=== PATIENT | female | born 1950 | race Caucasian/White ===

== ENCOUNTER 2016-11-24 13:20 | Inpatient (IN) | payer MEDICARE, MEDICAID ==
[~2016-11-24] VITALS: Ht 152.4 cm; Wt 68.0 kg
[~2016-11-24 13:20] MED LIST: ASPI-1159 PO; FURO40TA5 PO; HYDR-523 PO; LEVO150T8 PO; LISI2.5T47 PO; VIT D2 PO
[2016-11-24 15:36] LABS: BASOPHILS % 0.5 % (0.0-2.0); EOSINOPHILS % 1.7 % (0.0-5.0); HEMATOCRIT. 35.8 % (36.0-48.0); LYMPHOCYTES % 20.2 % (20.0-50.0); MEAN CORPUSCULAR HEMOGLOBIN 30.9 pg (28.0-32.0); MEAN CORPUSCULAR VOLUME 92.1 fL (81.0-99.0); MEAN PLATELET VOLUME 10.4 fl (7.4-10.4); NEUTROPHILS % 69.6 % (40.0-76.0); PLATELET 171 x1000/uL (130-400); RED BLOOD CELL COUNT 3.88 mill/uL (4.2-5.4); RED CELL DISTRIBUTION WIDTH 14.1 % (11.6-14.6)
[2016-11-24 15:41] LABS: CHLORIDE 110 mEq/L (98-107)
[2016-11-24 15:44] LABS: CARBON DIOXIDE 27 mEq/L (21-32)
[2016-11-24 21:35] VITALS: BP 144/82
[2016-11-24 21:55] VITALS: BP 144/82
[2016-11-24] MEDS ORDERED: POTA20TA82 PO (22:53)
[2016-11-24] MEDS ORDERED: CARV3.1242 PO (22:53)
[2016-11-24] MEDS ORDERED: ATOR10TA69 PO (22:53)
[2016-11-24] MEDS ORDERED: CLOP75TA33 PO (22:53)
[2016-11-24] MEDS ORDERED: HYDROCODONE/ACETAMINOPHEN 5/325MG TABLET PO PRN (23:00)
[2016-11-25] VITALS (9 sets, daily range): BP systolic 115–142; BP diastolic 47–78
[2016-11-25] MEDS: LEVOTHYROXINE SODIUM 150MCG TABLET PO SCH (06:45)
[2016-11-25 07:01] LABS: BASOPHILS % 0.8 % (0.0-2.0); HEMATOCRIT. 37.2 % (36.0-48.0); HEMOGLOBIN. 12.6 g/dL (12.0-16.0); LYMPHOCYTES % 23.7 % (20.0-50.0); MEAN CORPUSCULAR HEMOGLOBIN 31.1 pg (28.0-32.0); MEAN PLATELET VOLUME 10.7 fl (7.4-10.4); MONOCYTES % 9.4 % (2.0-8.0); NEUTROPHILS % 63.1 % (40.0-76.0); PLATELET 165 x1000/uL (130-400); RED BLOOD CELL COUNT 4.04 mill/uL (4.2-5.4); RED CELL DISTRIBUTION WIDTH 13.9 % (11.6-14.6)
[2016-11-25 07:32] LABS: CHLORIDE 109 mEq/L (98-107)
[2016-11-25 07:43] LABS: CARBON DIOXIDE 28 mEq/L (21-32)
[2016-11-25] MEDS: CARVEDILOL 3.125 MG TABLET PO SCH ×2 (09:00→17:00)
[2016-11-25] MEDS ORDERED: CLOPIDOGREL 75MG TABLET PO SCH (09:00)
[2016-11-25] MEDS: FUROSEMIDE 40MG TABLET PO SCH (09:40)
[2016-11-25] MEDS: POTASSIUM CHLORIDE 20MEQ TABLET SR PO SCH (09:40)
[2016-11-25] MEDS: ASPIRIN 81MG EC TABLET PO SCH (09:40)
[2016-11-25] MEDS: LISINOPRIL 2.5MG TABLET PO SCH (09:40)
[2016-11-25] MEDS: ENOXAPARIN 40MG/0.4ML SYR SUBCUT SCH (09:41)
[2016-11-25] MEDS ORDERED: DIATR MEGLU/DIATRIZOATE SOLN 120ML ONE (13:07)
[2016-11-25] MEDS: ATORVASTATIN CALCIUM 10MG TABLET PO SCH (21:21)
[2016-11-26] VITALS: BP 123/55
[2016-11-26 02:00] VITALS: BP 103/60
[2016-11-26 04:00] VITALS: BP 120/66
[2016-11-26] MEDS: LEVOTHYROXINE SODIUM 150MCG TABLET PO SCH (06:57)
[2016-11-26 07:01] LABS: BASOPHILS % 0.5 % (0.0-2.0); EOSINOPHILS % 2.8 % (0.0-5.0); HEMATOCRIT. 39.2 % (36.0-48.0); HEMOGLOBIN. 13.2 g/dL (12.0-16.0); LYMPHOCYTES % 22.3 % (20.0-50.0); MEAN CORPUSCULAR HEMOGLOBIN 30.9 pg (28.0-32.0); MEAN PLATELET VOLUME 10.5 fl (7.4-10.4); MONOCYTES % 8.8 % (2.0-8.0); NEUTROPHILS % 65.6 % (40.0-76.0); PLATELET 177 x1000/uL (130-400); RED BLOOD CELL COUNT 4.26 mill/uL (4.2-5.4); RED CELL DISTRIBUTION WIDTH 14.3 % (11.6-14.6)
[2016-11-26 07:52] LABS: CARBON DIOXIDE 28 mEq/L (21-32); CHLORIDE 106 mEq/L (98-107); CREATINE KINASE 149 IU/L (26-192); CREATINE KINASE MB FRACTION 1.9 ng/mL (0.5-3.6); TROPONIN I 0.07 ng/mL (0.00-0.04)
[2016-11-26] MEDS: FUROSEMIDE 40MG TABLET PO SCH (10:47)
[2016-11-26] MEDS: POTASSIUM CHLORIDE 20MEQ TABLET SR PO SCH (10:47)
[2016-11-26] MEDS: ASPIRIN 81MG EC TABLET PO SCH (10:48)
[2016-11-26] MEDS: CARVEDILOL 3.125 MG TABLET PO SCH ×2 (10:49→17:00)
[2016-11-26] MEDS: ENOXAPARIN 40MG/0.4ML SYR SUBCUT SCH (10:49)
[2016-11-26] MEDS: LISINOPRIL 2.5MG TABLET PO SCH (10:52)
[2016-11-26] MEDS ORDERED: CLOPIDOGREL 75MG TABLET PO SCH (11:00)
[2016-11-26 16:00] VITALS: BP_SYST 87; BP_SYST 95; BP_SYST 96; BP_DIAS 47; BP_DIAS 49; BP_DIAS 57
[2016-11-26 20:00] VITALS: BP 99/57
[2016-11-26] MEDS: ATORVASTATIN CALCIUM 10MG TABLET PO SCH (20:19)
[2016-11-26 22:00] VITALS: BP 96/73
[2016-11-27] VITALS (8 sets, daily range): BP systolic 91–109; BP diastolic 36–66
[2016-11-27] MEDS: LEVOTHYROXINE SODIUM 150MCG TABLET PO SCH (07:30)
[2016-11-27] MEDS: CARVEDILOL 3.125 MG TABLET PO SCH ×2 (08:44→17:00)
[2016-11-27] MEDS: ASPIRIN 81MG EC TABLET PO SCH (08:45)
[2016-11-27] MEDS: POTASSIUM CHLORIDE 20MEQ TABLET SR PO SCH (08:45)
[2016-11-27] MEDS: FUROSEMIDE 40MG TABLET PO SCH (08:45)
[2016-11-27] MEDS: LISINOPRIL 2.5MG TABLET PO SCH (08:45)
[2016-11-27 09:43] LABS: HEMATOCRIT. 40.4 % (36.0-48.0); HEMOGLOBIN. 13.5 g/dL (12.0-16.0); MEAN CORPUSCULAR HEMOGLOBIN 30.6 pg (28.0-32.0); MEAN CORPUSCULAR VOLUME 91.3 fL (81.0-99.0); MEAN PLATELET VOLUME 10.4 fl (7.4-10.4); PLATELET 181 x1000/uL (130-400); RED BLOOD CELL COUNT 4.42 mill/uL (4.2-5.4); RED CELL DISTRIBUTION WIDTH 14.2 % (11.6-14.6)
[2016-11-27 09:51] LABS: PARTIAL THROMBOPLASTIN TIME 27.9 sec (23.4-31.0); PROTHROMBIN TIME 10.6 sec (9.4-11.6)
[2016-11-27 10:31] LABS: CARBON DIOXIDE 26 mEq/L (21-32); CHLORIDE 105 mEq/L (98-107); HDL CHOLESTEROL 53 mg/dL (40-59); LDL CHOLESTEROL 52 mg/dL (5-100); PLATELET ESTIMATE NORMAL; TROPONIN I 0.06 ng/mL (0.00-0.04)
[2016-11-27] MEDS ORDERED: SIMETHICONE 40 MG/0.6 ML 30ML ONE (11:56)
[2016-11-27] MEDS ORDERED: SODIUM CHLORIDE 0.9% 10ML VIAL ONE (11:56)
[2016-11-27] MEDS ORDERED: MIDAZOLAM HCL 5 MG/5 ML VIAL ONE (12:46)
[2016-11-27] MEDS ORDERED: FENTANYL CITRATE/PF 50MCG/ML 2ML VIAL ONE (12:46)
[2016-11-27] MEDS: ATORVASTATIN CALCIUM 10MG TABLET PO SCH (21:00)
[2016-11-28] VITALS (7 sets, daily range): BP systolic 92–136; BP diastolic 43–74
[2016-11-28 06:34] LABS: BASOPHILS % 0.6 % (0.0-2.0); EOSINOPHILS % 2.3 % (0.0-5.0); HEMATOCRIT. 38.7 % (36.0-48.0); HEMOGLOBIN. 13.2 g/dL (12.0-16.0); LYMPHOCYTES % 21.7 % (20.0-50.0); MEAN CORPUSCULAR HEMOGLOBIN 31.4 pg (28.0-32.0); MEAN CORPUSCULAR VOLUME 91.7 fL (81.0-99.0); MEAN PLATELET VOLUME 10.4 fl (7.4-10.4); MONOCYTES % 8.5 % (2.0-8.0); NEUTROPHILS % 66.9 % (40.0-76.0); PLATELET 173 x1000/uL (130-400); RED BLOOD CELL COUNT 4.22 mill/uL (4.2-5.4); RED CELL DISTRIBUTION WIDTH 14.3 % (11.6-14.6)
[2016-11-28] MEDS: LEVOTHYROXINE SODIUM 150MCG TABLET PO SCH (06:42)
[2016-11-28 07:15] LABS: CARBON DIOXIDE 27 mEq/L (21-32); CHLORIDE 106 mEq/L (98-107)
[2016-11-28] MEDS: POTASSIUM CHLORIDE 20MEQ TABLET SR PO SCH (08:36)
[2016-11-28] MEDS: FUROSEMIDE 40MG TABLET PO SCH (08:36)
[2016-11-28] MEDS: ASPIRIN 81MG EC TABLET PO SCH (08:36)
[2016-11-28] MEDS: LISINOPRIL 2.5MG TABLET PO SCH (08:40)
[2016-11-28] MEDS: CARVEDILOL 3.125 MG TABLET PO SCH ×2 (08:42→17:00)
[2016-11-28] MEDS: ATORVASTATIN CALCIUM 10MG TABLET PO SCH (20:10)
[2016-11-29] VITALS (10 sets, daily range): BP systolic 88–115; BP diastolic 41–65
[2016-11-29] MEDS: LEVOTHYROXINE SODIUM 150MCG TABLET PO SCH (05:50)
[2016-11-29] MEDS: LISINOPRIL 2.5MG TABLET PO SCH (08:49)
[2016-11-29] MEDS: CARVEDILOL 3.125 MG TABLET PO SCH (08:49)
[2016-11-29] MEDS: ASPIRIN 81MG EC TABLET PO SCH (08:51)
[2016-11-29] MEDS: FUROSEMIDE 40MG TABLET PO SCH (08:51)
[2016-11-29] MEDS: POTASSIUM CHLORIDE 20MEQ TABLET SR PO SCH (08:51)
[2016-11-29] MEDS ORDERED: PROT40 PO (13:35)
[2016-12-01] MEDS ORDERED: ERGOCALCIFEROL 50000UNITS CAPSULE PO SCH (09:00)
[2016-12-01] MEDS ORDERED: VIT D2 1.25 MG PO SCH (09:00)
== END 2016-11-29 16:32 | disposition home or self-care (01) | DRG 392 ==
LOC: ER 15:33 → 5EST 18:51 → EDBEDREQ 19:01 → ENRESERV 20:02
PROVIDERS: ADMIT Internal Medicine; ATTEND Internal Medicine
PROC: 0DB68ZX Excision of Stomach, Via Natural or Artificial Opening Endoscopic, Diagnostic (ICD-10-PCS; principal; 2016-11-27 13:00)
DX: K22.2 Esophageal obstruction (principal); K31.84 Gastroparesis; I11.0 Hypertensive heart disease with heart failure; I50.42 Chronic combined systolic (congestive) and diastolic (congestive) heart failure; E11.43 Type 2 diabetes mellitus with diabetic autonomic (poly)neuropathy; R13.19 Other dysphagia; I25.5 Ischemic cardiomyopathy; E03.9 Hypothyroidism, unspecified; K29.70 Gastritis, unspecified, without bleeding; J45.909 Unspecified asthma, uncomplicated; I25.10 Atherosclerotic heart disease of native coronary artery without angina pectoris; E87.6 Hypokalemia; E78.00 Pure hypercholesterolemia, unspecified; E78.5 Hyperlipidemia, unspecified; R00.1 Bradycardia, unspecified; Z79.899 Other long term (current) drug therapy; Z79.82 Long term (current) use of aspirin; I25.2 Old myocardial infarction; Z95.5 Presence of coronary angioplasty implant and graft; Z95.1 Presence of aortocoronary bypass graft; Z95.0 Presence of cardiac pacemaker; Z92.3 Personal history of irradiation; Z92.21 Personal history of antineoplastic chemotherapy; Z87.891 Personal history of nicotine dependence; Z85.01 Personal history of malignant neoplasm of esophagus
CPT/HCPCS: 36415; 70450; 71010; 74220; 80048; 80053; 80061; 82550; 82553; 83735; 84484; 85025; 85610; 85730; 88305; 88312; 88313; 92610; 93005; 93306; 93970; 99285; A4216; J1650; J2250; J3010; Q9963

== ENCOUNTER 2017-01-04 09:01 | Inpatient (IN) | payer MEDICARE, MEDICAID ==
[~2017-01-04] VITALS: Ht 152.4 cm; Wt 70.4 kg
[~2017-01-04 09:01] MED LIST changes: +ATOR10TA69 PO; +CARV3.1242 PO; +CLOP75TA33 PO; +POTA20TA82 PO; +PROT40 PO
[2017-01-04] MEDS ORDERED: NITROGLYCERIN 50MCG/ML 10ML VIAL (CATH LAB) IV ONE (09:31)
[2017-01-04] MEDS ORDERED: NICARDIPINE 100MCG/ML 10ML VIAL (CATH LAB) IV ONE (09:31)
[2017-01-04] MEDS ORDERED: LIDOCAINE HCL 1% 20ML VIAL (Pyxis) INJ ONE (11:36)
[2017-01-04] MEDS ORDERED: ASPIRIN/SOD BICARB/CITRIC ACID 324MG TAB EFF ONE (11:36)
[2017-01-04] MEDS ORDERED: IODIXANOL 320MG/ML 100 ML BOTTLE IV ONE ×2 (11:36→12:58)
[2017-01-04] MEDS ORDERED: HEPARIN SODIUM 1,000 UNIT/1ML VIAL IV ONE ×2 (11:47→12:50)
[2017-01-04] MEDS ORDERED: MIDAZOLAM HCL 2 MG/2 ML VIAL ONE (11:56)
[2017-01-04] MEDS ORDERED: FENTANYL CITRATE/PF 50MCG/ML 2ML VIAL ONE (11:56)
[2017-01-04] MEDS ORDERED: IOVERSOL 240MG/ML 100ML BOTTLE IV ONE (12:43)
[2017-01-04] MEDS ORDERED: ATROPINE SULFATE 0.1MG/ML 10ML DISP.SYRIN ONE (12:57)
[2017-01-04 13:00] LABS: BASOPHILS % 0.7 % (0.0-2.0); EOSINOPHILS % 3.5 % (0.0-5.0); HEMATOCRIT. 33.8 % (36.0-48.0); HEMOGLOBIN. 11.3 g/dL (12.0-16.0); LYMPHOCYTES % 24.3 % (20.0-50.0); MEAN CORPUSCULAR HEMOGLOBIN 30.6 pg (28.0-32.0); MEAN CORPUSCULAR VOLUME 91.3 fL (81.0-99.0); MEAN PLATELET VOLUME 10.3 fl (7.4-10.4); MONOCYTES % 8.7 % (2.0-8.0); NEUTROPHILS % 62.8 % (40.0-76.0); PLATELET 167 x1000/uL (130-400); RED CELL DISTRIBUTION WIDTH 14.5 % (11.6-14.6)
[2017-01-04] MEDS ORDERED: CLOPIDOGREL 75MG TABLET ONE (13:19)
[2017-01-04] MEDS ORDERED: MORPHINE SULFATE 2 MG/ML CPJ (NOT FOR IM USE) IV PRN (13:30)
[2017-01-04] MEDS ORDERED: ONDANSETRON HCL 4MG/2ML VIAL IV PRN (13:30)
[2017-01-04] MEDS ORDERED: ATROPINE SULFATE 1MG/10ML SYR IV PRN (13:30)
[2017-01-04] MEDS ORDERED: CLOPIDOGREL 75MG TABLET PO ONE (13:30)
[2017-01-04] MEDS ORDERED: ACETAMINOPHEN 325MG TABLET PO PRN (13:30)
[2017-01-04 13:44] VITALS: BP 111/93
[2017-01-04 13:57] VITALS: BP 111/93
[2017-01-04] MEDS ORDERED: SODIUM CHLORIDE 0.45% 1,000 ML IV NR (14:32)
[2017-01-04 16:00] VITALS: BP 102/24
[2017-01-04 18:00] VITALS: BP 134/65
[2017-01-04 20:00] VITALS: BP 111/72
[2017-01-04] MEDS: CARVEDILOL 3.125 MG TABLET PO SCH (20:57)
[2017-01-04] MEDS ORDERED: ATORVASTATIN CALCIUM 20MG TABLET PO SCH (21:00)
[2017-01-04 22:00] VITALS: BP 123/30
[2017-01-05] VITALS: BP 124/56
[2017-01-05 02:00] VITALS: BP 115/72
[2017-01-05 04:00] VITALS: BP 121/62
[2017-01-05 06:00] VITALS: BP 122/62
[2017-01-05 07:51] LABS: BASOPHILS % 0.5 % (0.0-2.0); EOSINOPHILS % 2.8 % (0.0-5.0); HEMATOCRIT. 36.6 % (36.0-48.0); HEMOGLOBIN. 12.3 g/dL (12.0-16.0); LYMPHOCYTES % 16.8 % (20.0-50.0); MEAN CORPUSCULAR HEMOGLOBIN 30.4 pg (28.0-32.0); MEAN CORPUSCULAR VOLUME 90.8 fL (81.0-99.0); MEAN PLATELET VOLUME 10.5 fl (7.4-10.4); NEUTROPHILS % 71.9 % (40.0-76.0); PLATELET 174 x1000/uL (130-400); RED BLOOD CELL COUNT 4.03 mill/uL (4.2-5.4); RED CELL DISTRIBUTION WIDTH 14.2 % (11.6-14.6)
[2017-01-05 07:58] LABS: CARBON DIOXIDE 28 mEq/L (21-32); CHLORIDE 107 mEq/L (98-107)
[2017-01-05 08:00] VITALS: BP 131/64
[2017-01-05] MEDS: CARVEDILOL 3.125 MG TABLET PO SCH (08:14)
[2017-01-05] MEDS ORDERED: CLOPIDOGREL 75MG TABLET PO SCH (09:00)
[2017-01-05] MEDS ORDERED: ASPIRIN 325MG TABLET PO SCH (09:00)
[2017-01-05 10:00] VITALS: BP 121/49
== END 2017-01-05 11:10 | disposition home or self-care (01) | DRG 251 ==
LOC: CCL 09:01 → 3WST 09:02
PROVIDERS: ADMIT Specialist; ATTEND Specialist
PROC: 4A023N7 Measurement of Cardiac Sampling and Pressure, Left Heart, Percutaneous Approach (ICD-10-PCS; principal; 2017-01-04)
PROC: B2131ZZ Fluoroscopy of Multiple Coronary Artery Bypass Grafts using Low Osmolar Contrast (ICD-10-PCS; 2017-01-04)
PROC: B2111ZZ Fluoroscopy of Multiple Coronary Arteries using Low Osmolar Contrast (ICD-10-PCS; 2017-01-04)
PROC: B2151ZZ Fluoroscopy of Left Heart using Low Osmolar Contrast (ICD-10-PCS; 2017-01-04)
PROC: 02703ZZ Dilation of Coronary Artery, One Artery, Percutaneous Approach (ICD-10-PCS; 2017-01-04)
DX: T82.855A Stenosis of coronary artery stent, initial encounter (principal); I25.810 Atherosclerosis of coronary artery bypass graft(s) without angina pectoris; I25.82 Chronic total occlusion of coronary artery; I11.9 Hypertensive heart disease without heart failure; E03.9 Hypothyroidism, unspecified; E11.9 Type 2 diabetes mellitus without complications; Y83.8 Other surgical procedures as the cause of abnormal reaction of the patient, or of later complication, without mention of misadventure at the time of the procedure; E78.00 Pure hypercholesterolemia, unspecified; I25.5 Ischemic cardiomyopathy; R13.10 Dysphagia, unspecified; Z85.01 Personal history of malignant neoplasm of esophagus; Z92.21 Personal history of antineoplastic chemotherapy; Z92.3 Personal history of irradiation; Y92.89 Other specified places as the place of occurrence of the external cause
CPT/HCPCS: 36415; 80048; 85025; 85347; 92920; 93005; 93459; C1725; C1760; C1769; C1887; C1893; J0461; J1644; J2250; J3010; J3490; Q9967

== ENCOUNTER 2022-04-13 14:06 | Inpatient (IN) | payer OTHER, MEDICAID ==
[~2022-04-13] VITALS: Ht 147.3 cm; Wt 64.9 kg
[~2022-04-13 14:06] MED LIST changes: -ASPI-1159 PO; +ASPI-1497 PO; +POTA-204 PO; -POTA20TA82 PO
[2022-04-13 15:57] LABS: BASOPHILS % 0.4 % (0.0-2.0); EOSINOPHILS % 2.1 % (0.0-5.0); HEMATOCRIT. 40.3 % (36.0-48.0); HEMOGLOBIN. 13.4 g/dL (12.0-16.0); LYMPHOCYTES % 16.3 % (20.0-50.0); MEAN CORPUSCULAR HEMOGLOBIN 30.2 pg (28.0-32.0); MEAN PLATELET VOLUME 11.2 fl (7.4-10.4); MONOCYTES % 9.6 % (2.0-8.0); NEUTROPHILS % 71.6 % (40.0-76.0); PLATELET 170 x1000/uL (130-400); RED BLOOD CELL COUNT 4.42 mill/uL (4.2-5.4)
[2022-04-13 16:15] LABS: CHLORIDE 109 mEq/L (98-107)
[2022-04-13] MEDS ORDERED: NITROGLYCERIN 0.4MG TABLET SL SL PRN (17:15)
[2022-04-13] MEDS ORDERED: ASPIRIN 81MG TABLET PO ONE (17:15)
[2022-04-13] MEDS ORDERED: FUROSEMIDE 40MG/4ML VIAL IV ONE (17:15)
[2022-04-13] MEDS ORDERED: ENOXAPARIN 100MG/ML SYR SUBCUT ONE (17:15)
[2022-04-13] MEDS ORDERED: ONDANSETRON HCL 4MG/2ML INJ IV PRN (19:00)
[2022-04-13] MEDS ORDERED: GUAIFENESIN 200MG/10ML SUGAR FREE UDC PO PRN (19:00)
[2022-04-13] MEDS ORDERED: CLONIDINE 0.1MG TABLET PO PRN (19:00)
[2022-04-13] MEDS ORDERED: DOCUSATE SODIUM 100MG CAPSULE PO PRN (19:00)
[2022-04-13] MEDS ORDERED: ACETAMINOPHEN 325MG TABLET PO PRN ×2 (19:00)
[2022-04-13] MEDS ORDERED: HYDROCODONE/ACETAMINOPHEN 5/325MG TABLET PO PRN (19:00)
[2022-04-13] MEDS ORDERED: IPRATROPIUM/ALBUTEROL 0.5-3(2.5)MG/3ML NEB HHN PRN (19:00)
[2022-04-13] MEDS ORDERED: IPRATROPIUM BROMIDE (0.02%) 0.5MG/2.5ML NEB HHN PRN (19:15)
[2022-04-13] MEDS ORDERED: ALBUTEROL (0.083%) 2.5MG/3ML NEB HHN PRN (19:15)
[2022-04-13] MEDS ORDERED: FUROSEMIDE 40MG/4ML VIAL IVP NR (19:15)
[2022-04-13 19:53] LABS: VITAMIN B12 SERUM 304 pg/mL (211-911)
[2022-04-13 19:59] LABS: D-DIMER 0.48 mg/L FEU (<0.50); PROTHROMBIN TIME 10.9 sec (9.6-11.0)
[2022-04-13] MEDS ORDERED: METHYLPREDNISOLONE SOD SUCC 125 MG/2 ML VIAL IV NR (20:00)
[2022-04-13] MEDS ORDERED: DEXTROSE 50% WATER 50ML SYRINGE IV PRN (20:00)
[2022-04-13 20:25] LABS: CREATINE KINASE MB FRACTION 2.5 ng/mL (0.5-3.6)
[2022-04-13] MEDS: INSULIN LISPRO 100 UNITS/ML SUBCUT SCH (21:00)
[2022-04-13] MEDS ORDERED: ATORVASTATIN CALCIUM 10MG TABLET PO SCH (21:00)
[2022-04-13] MEDS: ATORVASTATIN CALCIUM 40MG TABLET PO SCH (21:00)
[2022-04-13] MEDS ORDERED: IPRATROPIUM/ALBUTEROL 0.5-3(2.5)MG/3ML NEB HHN ONE (22:00)
[2022-04-13] MEDS: BLOOD SUGAR DIAGNOSTIC STRIP TEST SCH (22:12)
[2022-04-14] VITALS (7 sets, daily range): BP systolic 104–124; BP diastolic 40–54
[2022-04-14 00:03] LABS: BG BASE EXCESS 3.6 mmol/L (-2.0-2.0); BG CARBOXYHEMOGLOBIN 0.4 % (0.5-1.5); BG FRACTION INSPIRED OXYGEN 21; BG HCO3 ACT 27.5 mmol/L (22.0-26.0); BG METHEMOGLOBIN 0.3 % (0.0-1.5); BG OXYGEN SATURATION 91.9 % (92.0-98.5); BG OXYHEMOGLOBIN 91.3 % (94.0-97.0); BG PH 7.466 (7.350-7.450); BG PO2 59.5 mmHg (75.0-100.0); BG SAMPLE SITE RIGHT BRACHIAL; BG TOTAL HEMOGLOBIN 14.6 g/dL (12.0-18.0); BG VENT MODE ROOM AIR
[2022-04-14] MEDS ORDERED: CARV3.1242 PO (01:40)
[2022-04-14] MEDS: BLOOD SUGAR DIAGNOSTIC STRIP TEST SCH ×4 (06:40→20:47)
[2022-04-14] MEDS: INSULIN LISPRO 100 UNITS/ML SUBCUT SCH ×4 (07:10→20:46)
[2022-04-14 07:30] LABS: BASOPHILS % 0.2 % (0.0-2.0); HEMATOCRIT. 41.1 % (36.0-48.0); LYMPHOCYTES % 13.3 % (20.0-50.0); MEAN CORPUSCULAR HEMOGLOBIN 30.6 pg (28.0-32.0); MEAN CORPUSCULAR VOLUME 89.8 fL (81.0-99.0); MEAN PLATELET VOLUME 11.4 fl (7.4-10.4); MONOCYTES % 1.2 % (2.0-8.0); NEUTROPHILS % 85.3 % (40.0-76.0); PLATELET 186 x1000/uL (130-400); RED BLOOD CELL COUNT 4.58 mill/uL (4.2-5.4); RED CELL DISTRIBUTION WIDTH 13.9 % (11.6-14.6)
[2022-04-14 07:40] LABS: CHLORIDE 100 mEq/L (98-107)
[2022-04-14 08:03] LABS: CREATINE KINASE 106 IU/L (26-192); CREATINE KINASE MB FRACTION 2.2 ng/mL (0.5-3.6); HDL CHOLESTEROL 72 mg/dL (40-59); LDL CHOLESTEROL 43 mg/dL (5-100); T4 FREE 1.18 ng/dL (0.76-1.46)
[2022-04-14] MEDS ORDERED: LISINOPRIL 2.5MG TABLET PO SCH (09:00)
[2022-04-14] MEDS ORDERED: ASPIRIN 81MG EC TABLET PO SCH (09:00)
[2022-04-14] MEDS: FUROSEMIDE 40MG TABLET PO SCH (09:15)
[2022-04-14] MEDS: CLOPIDOGREL 75MG TABLET PO SCH (09:15)
[2022-04-14] MEDS: ASPIRIN 81MG EC TABLET PO SCH (09:15)
[2022-04-14] MEDS: PANTOPRAZOLE 40MG DR TABLET PO SCH (09:15)
[2022-04-14] MEDS: LEVOTHYROXINE SODIUM 150MCG TABLET PO SCH (09:15)
[2022-04-14] MEDS ORDERED: ENOXAPARIN 40MG/0.4ML SYR SUBCUT SCH (17:00)
[2022-04-14] MEDS: ATORVASTATIN CALCIUM 40MG TABLET PO SCH (21:15)
[2022-04-15] VITALS: BP 132/49
[2022-04-15 04:00] VITALS: BP 105/45
[2022-04-15] MEDS ORDERED: SODIUM CHLORIDE 0.45% 1,000 ML IV ONE (05:00)
[2022-04-15] MEDS: INSULIN LISPRO 100 UNITS/ML SUBCUT SCH ×3 (06:23→17:10)
[2022-04-15] MEDS: BLOOD SUGAR DIAGNOSTIC STRIP TEST SCH ×3 (06:23→17:16)
[2022-04-15 07:48] LABS: BASOPHILS % 0.3 % (0.0-2.0); EOSINOPHILS % 0.3 % (0.0-5.0); HEMATOCRIT. 40.2 % (36.0-48.0); HEMOGLOBIN. 13.5 g/dL (12.0-16.0); LYMPHOCYTES % 18.2 % (20.0-50.0); MEAN CORPUSCULAR HEMOGLOBIN 30.2 pg (28.0-32.0); MEAN CORPUSCULAR VOLUME 89.6 fL (81.0-99.0); MONOCYTES % 7.7 % (2.0-8.0); NEUTROPHILS % 73.5 % (40.0-76.0); RED BLOOD CELL COUNT 4.49 mill/uL (4.2-5.4); RED CELL DISTRIBUTION WIDTH 13.8 % (11.6-14.6)
[2022-04-15 08:00] VITALS: BP 123/50
[2022-04-15 08:43] LABS: PLATELET 175 x1000/uL (130-400)
[2022-04-15] MEDS: FUROSEMIDE 40MG TABLET PO SCH (09:00)
[2022-04-15] MEDS: PANTOPRAZOLE 40MG DR TABLET PO SCH (09:19)
[2022-04-15] MEDS: LEVOTHYROXINE SODIUM 150MCG TABLET PO SCH (09:19)
[2022-04-15] MEDS: CLOPIDOGREL 75MG TABLET PO SCH (09:19)
[2022-04-15] MEDS: ASPIRIN 81MG EC TABLET PO SCH (09:19)
[2022-04-15] MEDS ORDERED: IODIXANOL 320MG/ML 100 ML BOTTLE IV ONE ×2 (09:41→11:48)
[2022-04-15] MEDS ORDERED: FENTANYL CITRATE/PF 50MCG/ML 2ML VIAL ONE (09:42)
[2022-04-15] MEDS ORDERED: MIDAZOLAM HCL 2 MG/2 ML VIAL ONE (09:42)
[2022-04-15] MEDS ORDERED: LIDOCAINE HCL/PF 1% 10 MG/ML 5ML VIAL ONE (09:42)
[2022-04-15] MEDS ORDERED: HEPARIN 1000 UNITS/ML 10ML ONE (09:42)
[2022-04-15] MEDS ORDERED: ASPIRIN/SOD BICARB/CITRIC ACID 324MG TAB EFF ONE (10:03)
[2022-04-15] MEDS ORDERED: NITROGLYCERIN 50MCG/ML 10ML VIAL (CATH LAB) IV ONE (10:52)
[2022-04-15] MEDS ORDERED: NICARDIPINE 100MCG/ML 10ML VIAL (CATH LAB) IV ONE (10:52)
[2022-04-15] MEDS ORDERED: SODIUM CHLORIDE 0.45% 500 ML IV ONE ×2 (11:00→11:45)
[2022-04-15] MEDS ORDERED: ACETAMINOPHEN 325MG TABLET PO PRN (11:00)
[2022-04-15] MEDS ORDERED: ATROPINE SULFATE 1MG/10ML SYR IV PRN (11:00)
[2022-04-15] MEDS ORDERED: MORPHINE SULFATE 2 MG/ML CPJ (NOT FOR IM USE) IV PRN (11:00)
[2022-04-15] MEDS ORDERED: ONDANSETRON HCL 4MG/2ML INJ IV PRN (11:00)
[2022-04-15] MEDS ORDERED: GENTAMICIN SULF 40MG/ML 2ML VIAL ONE (11:48)
[2022-04-15] MEDS ORDERED: LIDOCAINE HCL 1% 50ML VIAL (10MG/ML) ONE (11:49)
[2022-04-15] MEDS ORDERED: LIP40 MT (15:36)
[2022-04-15 16:00] VITALS: BP_SYST 120
[2022-04-15 17:16] VITALS: BP 120/42
[2022-04-15] MEDS ORDERED: NALOXONE HCL 0.4MG/ML VIAL IV PRN (18:00)
[2022-04-16] MEDS ORDERED: FAMOTIDINE 20MG TABLET PO SCH (09:00)
== END 2022-04-15 19:47 | disposition home or self-care (01) | DRG 286 ==
LOC: ER 14:06 → EDBEDREQ 17:18 → MICUSO 17:45 → EDBEDREQ 18:12 → EDBEDREQTM 18:12 → 7EST 04-14 00:28
PROVIDERS: ADMIT Internal Medicine; ATTEND Internal Medicine
PROC: 4A023N7 Measurement of Cardiac Sampling and Pressure, Left Heart, Percutaneous Approach (ICD-10-PCS; principal; 2022-04-15)
PROC: B2111ZZ Fluoroscopy of Multiple Coronary Arteries using Low Osmolar Contrast (ICD-10-PCS; 2022-04-15)
PROC: B2151ZZ Fluoroscopy of Left Heart using Low Osmolar Contrast (ICD-10-PCS; 2022-04-15)
PROC: B41G1ZZ Fluoroscopy of Left Lower Extremity Arteries using Low Osmolar Contrast (ICD-10-PCS; 2022-04-15)
DX: I11.0 Hypertensive heart disease with heart failure (principal); I50.23 Acute on chronic systolic (congestive) heart failure; J84.9 Interstitial pulmonary disease, unspecified; E03.9 Hypothyroidism, unspecified; E11.9 Type 2 diabetes mellitus without complications; E78.5 Hyperlipidemia, unspecified; I08.2 Rheumatic disorders of both aortic and tricuspid valves; I25.10 Atherosclerotic heart disease of native coronary artery without angina pectoris; I25.5 Ischemic cardiomyopathy; I27.20 Pulmonary hypertension, unspecified; I65.29 Occlusion and stenosis of unspecified carotid artery; I71.21 Aneurysm of the ascending aorta, without rupture; Z20.822 Contact with and (suspected) exposure to COVID-19; J45.909 Unspecified asthma, uncomplicated; N81.10 Cystocele, unspecified; R06.03 Acute respiratory distress; Z87.891 Personal history of nicotine dependence; Z95.1 Presence of aortocoronary bypass graft; Z85.01 Personal history of malignant neoplasm of esophagus; Z79.899 Other long term (current) drug therapy; Z79.02 Long term (current) use of antithrombotics/antiplatelets; Z79.82 Long term (current) use of aspirin
CPT/HCPCS: 36415; 36600; 71045; 71250; 80048; 80053; 80061; 82375; 82550; 82553; 82607; 82652; 82805; 82962; 83036; 83605; 83735; 83880; 84100; 84439; 84443; 84481; 84484; 85025; 85379; 85651; 87426; 93005; 93306; 93459; 93970; 99291; C1769; C1887; C1893; J1580; J1644; J1650; J1940; J2250; J2930; J3010; J3490; Q9967